=== PATIENT | male | born 1965 | race Caucasian/White ===

== ENCOUNTER 2019-09-15 07:52 | Emergency (ER) | payer SELFPAY ==
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
== END 2019-09-15 08:10 | disposition home or self-care (01) ==
LOC: ED 07:52 → EDSTATUS 08:26
DX: Z53.21 Procedure and treatment not carried out due to patient leaving prior to being seen by health care provider (principal)